=== PATIENT | female | born 1980 | race Caucasian/White ===

== ENCOUNTER 2017-10-25 13:13 | Emergency (ER) | payer BC ==
[~2017-10-25] VITALS: Ht 584.7 cm; Wt 59.8 kg
[~2017-10-25 13:13] MED LIST: COROTSUS OT
[2017-10-25] MEDS ORDERED: TETanus/Pertussis (Acell)/Diphther VAC/PF (Tdap-Adult) 0.5ml syringe IM ONE (14:15)
[2017-10-25] MEDS ORDERED: LIDOcaine 1.5% w/epinephrine 1:200,000 5ml ampul IJ ONE (14:15)
[2017-10-25] MEDS ORDERED: ibuprofen tablet 400 MG TABLET PO ONE (14:35)
[2017-10-25] MEDS ORDERED: acetaminophen 325mg tablet PO ONE (14:35)
[2017-10-25 15:30] VITALS: BP 118/70
== END 2017-10-25 15:31 | disposition home or self-care (01) ==
LOC: ER 13:14
DX: L02.214 Cutaneous abscess of groin (principal); Z79.2 Long term (current) use of antibiotics
CPT/HCPCS: 10060; 90471; 90715; 99283; A6266; A6449; J3490

== ENCOUNTER 2018-06-04 15:53 | Emergency (ER) | payer BC ==
[~2018-06-04] VITALS: Ht 170.2 cm; Wt 61.6 kg
[2018-06-04 15:56] VITALS: BP 97/64
[2018-06-04] MEDS ORDERED: FLUT16SP2 BOTHNARES (16:02)
[2018-06-04] MEDS ORDERED: PSEU-259 PO (16:02)
[2018-06-04] MEDS ORDERED: METH4TAB3 PO (16:02)
== END 2018-06-04 16:20 | disposition home or self-care (01) ==
LOC: ER 15:54
DX: J06.9 Acute upper respiratory infection, unspecified (principal); J32.9 Chronic sinusitis, unspecified; Z79.899 Other long term (current) drug therapy; Z88.8 Allergy status to other drugs, medicaments and biological substances
CPT/HCPCS: 99283